=== PATIENT | female | born 1990 | race African-American/Black ===

== ENCOUNTER 2020-04-21 23:30 | Emergency (ER) | payer SELFPAY ==
[~2020-04-21] VITALS: Ht 157.5 cm; Wt 72.0 kg
[2020-04-21 23:30] VITALS: BP 144/88
== END 2020-04-22 01:22 | disposition left against medical advice (07) ==
LOC: ER 23:30
DX: R20.0 Anesthesia of skin (principal)
CPT/HCPCS: 99281